=== PATIENT | male | born 1985 | race Caucasian/White ===

== ENCOUNTER 2017-01-12 11:32 | Emergency (ER) | payer SELFPAY ==
[~2017-01-12] VITALS: Ht 175.3 cm; Wt 80.5 kg
[2017-01-12 11:37] VITALS: BP 131/98
== END 2017-01-12 15:40 | disposition home or self-care (01) ==
LOC: EMS 11:35
DX: S93.402A Sprain of unspecified ligament of left ankle, initial encounter (principal); M79.672 Pain in left foot; F17.210 Nicotine dependence, cigarettes, uncomplicated; X50.1XXA Overexertion from prolonged static or awkward postures, initial encounter; Y93.89 Activity, other specified; Y92.89 Other specified places as the place of occurrence of the external cause; Y99.8 Other external cause status
CPT/HCPCS: 99284